=== PATIENT | female | born 1965 | race Two or more races ===

== ENCOUNTER 2022-08-04 21:11 | Inpatient (IN) | payer OTHER ==
[~2022-08-04] VITALS: Ht 165.1 cm; Wt 74.4 kg
--- NOTE | 2022-08-04 21:15 | NUR ---
[id number] from home cp x2days, worse today d/t stress. PLACED ON BED, AAOX4, ATTACHED TO MONITOR SHOWS NORMAL SINUS RHYTHYM GA- 67, BREATHING EVEN AND UNLABORED SATURATING AT 97%RA, IN PAIN 7/10 PS.
--- NOTE | 2022-08-04 22:00 | NUR ---
X-RAY TECH AT BEDSIDE
--- NOTE | 2022-08-04 22:21 | NUR ---
LEAVE MANAGER AT BEDSIDE
[2022-08-04] MEDS ORDERED: IBUPROFEN 400 MG TABLET ONE (22:37)
[2022-08-04 22:59] LABS: BASOPHILS % (AUTO) 0.4 % (0.0-2.0); EOSINOPHILS % (AUTO) 5.2 % (0.0-6.0); HEMATOCRIT 39 % (33-45); HEMOGLOBIN 12.9 g/dL (11.5-14.8); LYMPHOCYTES # (AUTO) 2.4 K/uL (0.8-4.8); LYMPHOCYTES % (AUTO) 29.5 % (20.0-44.0); MEAN CORPUSCULAR HGB CONC 33 g/dl (31.0-36.0); MEAN CORPUSCULAR VOLUME 87 fL (82-100); MONOCYTES # (AUTO) 0.5 K/uL (0.1-1.30); MONOCYTES % (AUTO) 6.6 % (2.0-12.0); NEUTROPHILS # (AUTO) 4.8 K/uL (1.8-8.9); NEUTROPHILS % (AUTO) 58.3 % (43.0-81.0); PLATELET COUNT (AUTO) 177 K/uL (150-450); RED BLOOD CELL COUNT(AUTO) 4.43 MIL/uL (4.0-5.2); WHITE BLOOD COUNT (AUTO) 8.3 K/uL (4.3-11.0)
[2022-08-04] MEDS ORDERED: IBUPROFEN 400 MG TABLET PO ONE (23:00)
[2022-08-04 23:47] LABS: CALCIUM, SERUM 9.7 mg/dL (8.5-10.1); CARBON DIOXIDE 25 mmol/L (21-32); CHLORIDE 108 mmol/L (98-107); GLUCOSE 111 mg/dL (74-106); POTASSIUM 3.7 mmol/L (3.5-5.1); SODIUM SERUM 141 mmol/L (136-145); UREA NITROGEN, BLOOD 14 mg/dL (7-18)
--- NOTE | 2022-08-05 02:16 | NUR ---
COVID SWAB COLLECTED
[2022-08-05] MEDS ORDERED: MAG HYDROX/AL HYDROX/SIMETH 30 ML UDC PO PRN (02:30)
[2022-08-05] MEDS ORDERED: ONDANSETRON HCL/PF 4 MG/2 ML VIAL IVP PRN (02:30)
[2022-08-05] MEDS ORDERED: NITROGLYCERIN 0.4 MG/TAB BOTTLE SL PRN (02:30)
[2022-08-05] MEDS ORDERED: ASPIRIN 325 MG TABLET PO ONE (02:30)
[2022-08-05] MEDS ORDERED: LORAZEPAM INJ 2 MG/ML VIAL IV PRN (02:30)
[2022-08-05] MEDS ORDERED: ACETAMINOPHEN 325 MG TABLET PO PRN (02:30)
[2022-08-05] MEDS ORDERED: HYDROCODONE/APAP 5/325MG TABLET PO PRN (02:30)
[2022-08-05] MEDS ORDERED: MAGNESIUM HYDROXIDE 30 ML UDC PO PRN (02:30)
[2022-08-05] MEDS ORDERED: TEMAZEPAM 15 MG CAPSULE PO PRN (02:30)
[2022-08-05] MEDS ORDERED: Z GUARD REMEDY 4 OZ OINT TP PRN (02:30)
[2022-08-05] MEDS ORDERED: ASPIRIN 325 MG TABLET ONE (02:39)
[2022-08-05] MEDS ORDERED: MORPHINE SULFATE INJ 4 MG/ML DISP.SYRIN IV PRN (03:30)
--- NOTE | 2022-08-05 05:07 | NUR ---
REPORT GIVEN TO JERMAINE LÓPEZ FOR EUGENIA
[2022-08-05 06:00] VITALS: BP 161/68
[2022-08-05 06:45] VITALS: BP 161/68
--- NOTE | 2022-08-05 06:56 | NUR ---
SCOOPERPM TECHNICIAN NOTE ADMITTED THIS PATIENT FROM ER VIA [facility]. PATIENT IS AWAKE, ALERT AND ORIENTED X 4, AMBULATORY. BREATHING EVEN AND UNLABORED. ON ROOM AIR; TOLERATING WELL. ON TELEMETRY MONITORING WITH CURRENT READING OF SINUS BRADYCARDIA HR-58 BPM. WITH IV ACCESS ON RIGHT HAND 18G; PATENT, INTACT AND SALINE LOCKED. INITIAL VS TAKEN AND RECORDED FOLLOWS: TEMP 97.8, NV 57, RR 20, 02 SAT 96%, BP 161/68 MM HG. BODY ASSESSMENT DONE; SKIN IS WARM TO TOUCH AND INTACT. ORIENTED TO STAFF, ROOM AND UNIT. SAFETY PRECAUTIONS IMPLEMENTED: CALL LIGHT AND TABLE WITHIN REACH, SIDE RAILS UP X 2, BED IN LOWEST LOCKED POSITION. ENDORSED TO RENE LÓPEZ FOR EUGENIA.
[2022-08-05] MEDS ORDERED: PANTOPRAZOLE 40 MG TABLET.DR PO SCH (07:30)
--- NOTE | 2022-08-05 07:30 | NUR ---
RN OPENING NOTE RECEIVED PATIENT SLEEPING IN BED, EASILY AROUSED. PATIENT IS A/O X4, VERBALLY RESPONSIVE. NO SIGNS OF ACUTE DISTRESS NOTED. ON ROOM AIR, TOLERATING WELL. NO SOB NOTED. BREATHING EVEN AND UNLABORED. NOTED WITH IV ACCESS ON RIGHT HAND #18G, INTACT AND PATENT, SALINE LOCKED. ON TELE MONITOR SHOWING SINUS RHYTHM, HR @68. DENIES ANY PAIN AT THIS TIME. SAFETY MEASURE IN PLACE. BED IN LOWEST AND LOCKED POSITION, SIDE RAILS UP X2, CALL LIGHT PLACED WITHIN EASY REACH. WILL CONTINUE TO MONITOR PATIENT.
[2022-08-05 08:00] VITALS: BP 143/56
[2022-08-05 08:31] LABS: CHOLESTEROL 162 mg/dL (<200); HDL CHOLESTEROL 54 mg/dL (40-60); LDL 97 mg/dL (0-99); TRIGLYCERIDES 94 mg/dL (30-150)
[2022-08-05] MEDS: VALSARTAN 80 MG TABLET PO SCH ×2 (09:00→09:10)
[2022-08-05] MEDS ORDERED: ASPIRIN 81 MG TAB.CHEW PO SCH (09:00)
[2022-08-05] MEDS ORDERED: [UNRECOGNIZED DRUG - REMARK] (09:40)
[2022-08-05] MEDS ORDERED: ALBU8.5H8 IH (09:58)
[2022-08-05] MEDS ORDERED: LISI20TA30 PO (09:58)
[2022-08-05] MEDS ORDERED: MONT10TA22 PO (09:58)
[2022-08-05] MEDS ORDERED: AMLO10TA4 PO (09:58)
[2022-08-05] MEDS ORDERED: OMEP40CA21 PO (09:58)
[2022-08-05] MEDS ORDERED: FLUT1BLS13 IH (09:58)
[2022-08-05] MEDS ORDERED: ESCI10TA PO (09:58)
[2022-08-05] MEDS ORDERED: FLUT16SP16 (09:59)
[2022-08-05] MEDS ORDERED: TURMERIC PO (10:00)
[2022-08-05] MEDS ORDERED: IBUP1TAB68 PO (10:00)
[2022-08-05] MEDS ORDERED: OMEGA XL PO (10:00)
[2022-08-05] MEDS ORDERED: ARDOSONS PO (10:02)
[2022-08-05 12:00] VITALS: BP 139/69
[2022-08-05] MEDS ORDERED: ALBUTEROL FS 2.5 MG/3 ML VIAL.NEB NEB PRN (13:30)
[2022-08-05] MEDS ORDERED: ALBUTEROL FS 2.5 MG/3 ML VIAL.NEB NEB SCH (13:30)
--- NOTE | 2022-08-05 15:43 | NUR ---
RN NOTE PATIENT PICKED UP FOR CTCA VIA W/C, IN STABLE CONDITION.
--- NOTE | 2022-08-05 15:50 | NUR ---
PATIENT [id number]. ABLE TO MAKE NEEDS KNOWN. AWARE OF PLAN OF CARE, AWARE OF RISK AND BENEFITS. NOTED CONSENT IN CHART. DENIED PAIN OR SOB. WILL CONT TO MONITOR.
[2022-08-05 16:00] VITALS: BP 138/69
[2022-08-05] MEDS ORDERED: METOPROLOL TARTRATE INJ 5 MG/5 ML AMPUL ONE (16:01)
[2022-08-05 16:05] VITALS: BP 129/86
[2022-08-05] MEDS ORDERED: IV NS 0.9% 250 ML IV ONE (16:08)
[2022-08-05] MEDS ORDERED: IOHEXOL-350 100 ML VIAL IV ONE (16:08)
[2022-08-05] MEDS ORDERED: CT SWABBABLE VALVE TRANS SET 1 EA INFUS.SET MC ONE (16:08)
--- NOTE | 2022-08-05 16:15 | NUR ---
RN/CTA CTA PROCEDURE COMPLETED AT THIS TIME. PATIENT [id number], DENIED PAIN OR SOB. BACK TO 328-2 VIA ACLS PROTOCOL. PATIENT IN STABLE CONDITION. REPORT GIVEN TO RENE LÓPEZ FOR EUGENIA.
--- NOTE | 2022-08-05 16:25 | NUR ---
RN NOTE PATIENT BACK FROM CTA PROCEDURE, IN STABLE CONDITION.
[2022-08-05] MEDS ORDERED: NITROGLYCERIN 0.4 MG/TAB BOTTLE SL ONE (16:30)
[2022-08-05] MEDS ORDERED: METOPROLOL TARTRATE INJ 5 MG/5 ML AMPUL IVP PRN (16:30)
[2022-08-05] MEDS ORDERED: NITROGLYCERIN 4.9 GM SPRAY SL ONE (16:30)
[2022-08-05] MEDS ORDERED: WIXELA INH SCH (17:00)
[2022-08-05] MEDS ORDERED: INFLUENZA VACCINE 2022-23 0.5 ML DISP.SYRIN IM ONE (17:00)
[2022-08-05] MEDS ORDERED: BUDESONIDE RESPULE INH 0.5 MG/2 ML AMPUL.NEB IH SCH (17:00)
--- NOTE | 2022-08-05 18:35 | NUR ---
RN NOTE CTA RESULTS: No significant coronary artery calcifications; No significant coronary artery disease. PATIENT OK TO DISCHARGE.
--- NOTE | 2022-08-05 19:04 | NUR ---
INFORMATION TECHNOLOGY PROFESSOR NOTE PATIENT DISCHARGED HOME IN STABLE CONDITION. PATIENT IS AWAKE, A/O X4, VERBALLY RESPONSIVE. NO SIGNS OF ACUTE DISTRESS NOTED. DENIES ANY CHEST PAIN AT THIS TIME. IV ACCESS ON RIGHT HAND AND RIGHT AC REMOVED, NO BLEEDING NOTED. ARM NAME BAND REMOVED. EXITCARE FOLDER GIVEN TO PATIENT, HEALTH TEACHINGS AND DISCHARGE INSTRUCTIONS PROVIDED, WITH VERBALIZATION OF UNDERSTANDING. PATIENT LEFT UNIT @1900 VIA W/C ACCOMPANIED BY MENTAL HEALTH COORDINATOR. PATIENT PICKED UP BY [facility] VIA PRIVATE CAR. CN AWARE OF DISCHARGE.
[2022-08-06] MEDS ORDERED: ESCITALOPRAM OXALATE (10 MG) 10 MG TABLET PO SCH (09:00)
[2022-08-06] MEDS ORDERED: AMLODIPINE BESYLATE 10 MG TABLET PO SCH (09:00)
[2022-08-06] MEDS ORDERED: LISINOPRIL (20MG) 20 MG TABLET PO SCH (09:00)
[2022-08-06] MEDS ORDERED: MONTELUKAST SODIUM (10MG) 10 MG TABLET PO SCH (09:00)
[2022-08-06] MEDS ORDERED: FLUTICASONE PROPIONATE 16 GM BOTTLE NS SCH (09:00)
== END 2022-08-05 19:15 | disposition home or self-care (01) | DRG 203 ==
LOC: ER 21:15 → TRANSITION 08-05 03:08 → TELE 08-05 04:14
PROVIDERS: ADMIT Internal Medicine; ATTEND Internal Medicine
DX: M94.0 Chondrocostal junction syndrome [Tietze] (principal); E66.01 Morbid (severe) obesity due to excess calories; F32.9 Major depressive disorder, single episode, unspecified; I16.9 Hypertensive crisis, unspecified; I10 Essential (primary) hypertension; G47.33 Obstructive sleep apnea (adult) (pediatric); F41.9 Anxiety disorder, unspecified; J45.909 Unspecified asthma, uncomplicated
CPT/HCPCS: 36415; 71045-TC; 75574; 80048-TC; 80061-TC; 84484-TC; 85025-TC; 87081-TC; 93307-TC; C9803; G0378; J2060; J2270; J2405; J3490; J7050; Q2036; Q9967